=== PATIENT | female | born 1960 | race Caucasian/White ===

== ENCOUNTER 2016-10-28 04:56 | Emergency (ER) | payer BC ==
[~2016-10-28] VITALS: Ht 160 cm; Wt 112.8 kg
[~2016-10-28 04:56] MED LIST: DILAUDID2 MG PO; LIPITOR20 MG PO; MELOXICAM7.5 MG PO; PAXIL10 MG PO; PERCOCET 5/31 TABLET PO; PRILOSEC40 MG PO
[2016-10-28 05:35] LABS: BILIRUBIN NEGATIVE; BLOOD NEGATIVE; COLOR YELLOW ((YELLOW)); GLUCOSE (STRIP) NEGATIVE; KETONES NEGATIVE; LEUKOCYTES NEGATIVE; NITRITE NEGATIVE; PH, URINE 7.5 (5-8); PROTEIN (STRIP) NEGATIVE; SPECIFIC GRAVITY 1.017 (1.000-1.030)
[2016-10-28 05:36] LABS: HEMATOCRIT 41.7 % (36.0-46.0); MCH 29.2 PG (29.0-34.0); MCHC 33.8 G/DL (30.0-36.0); MCV 86.3 FL (83-99); MEAN PLAT.VOLUME 9.5 uM^3 (9.5-12.4); PLATELET COUNT 374 K/uL (156-360); RBC DIS.WIDTH-CV 14.1 % (11.8-14.6); RBC DIS.WIDTH-SD 43.6 % (39-53); RED BLOOD COUNT 4.83 M/uL (3.80-5.20); WHITE BLOOD COUNT 15.4 K/uL (4.1-10.2)
[2016-10-28 05:43] LABS: ADD MIUA? NO; UCUL ADDED? NO
[2016-10-28 05:51] LABS: CHLORIDE 106 mEq/L (99-109); POTASSIUM 4.2 mEq/L (3.7-5.4); SODIUM 138 mEq/L (136-147)
[2016-10-28 05:53] LABS: GLUCOSE 122 mg/dL (70-99)
[2016-10-28 05:55] LABS: ANION GAP 11 MEQ/L (2-14); TOTAL BILIRUBIN 0.4 mg/dL (0.0-1.0)
[2016-10-28 05:57] LABS: ALKALINE PHOSPHATASE 106 IU/L (3-129); GFR ESTIMATE (CALCULATED) > 59 mL/min/
[2016-10-28 05:58] LABS: UREA NITROGEN (BUN) 14 mg/dL (9-23)
[2016-10-28 05:59] LABS: DIRECT BILIRUBIN 0.2 mg/dL (0.0-0.3)
[2016-10-28 06:00] LABS: LIPASE 44 U/L (1.0-51.0)
[2016-10-28 06:07] LABS: QUANTITATIVE HCG 4.9 MIU/ML
[2016-10-28] MEDS ORDERED: ZOFRAN8 MG PO (07:20)
[2016-10-28] MEDS ORDERED: NORCO 5/3251 TABLET PO (07:20)
[2016-10-28 08:08] VITALS: BP 130/87
== END 2016-10-28 08:22 | disposition home or self-care (01) ==
LOC: EME 04:56
DX: R10.13 Epigastric pain (principal); R10.11 Right upper quadrant pain; D72.829 Elevated white blood cell count, unspecified; R11.0 Nausea; K21.9 Gastro-esophageal reflux disease without esophagitis; J45.909 Unspecified asthma, uncomplicated
CPT/HCPCS: 74177; 76705; 80053; 81003; 82248; 83690; 84702; 85027; 93005; 99281; 99285; J1885; J2270; J2405; J7030

== ENCOUNTER 2017-01-07 21:24 | Emergency (ER) | payer BC ==
[~2017-01-07] VITALS: Ht 160 cm; Wt 116.2 kg
[~2017-01-07 21:24] MED LIST changes: +NORCO 5/3251 TABLET PO; +ZOFRAN8 MG PO
[2017-01-07] MEDS ORDERED: LIDOCAINE20 MG/1 M5 PO (22:51)
[2017-01-07] MEDS ORDERED: PEN-VEE K,VEET500 MG PO (22:51)
[2017-01-07] MEDS ORDERED: PREDNISONE20 MG PO (22:51)
[2017-01-07 23:23] VITALS: BP 133/77
== END 2017-01-07 23:34 | disposition home or self-care (01) ==
LOC: RME 21:24 → EME 21:24 → RME 23:34
DX: G89.18 Other acute postprocedural pain (principal); K08.89 Other specified disorders of teeth and supporting structures; Z96.5 Presence of tooth-root and mandibular implants; K05.10 Chronic gingivitis, plaque induced
CPT/HCPCS: 99281; 99283; J7512